=== PATIENT | female | born 1950 | race Asian ===

== ENCOUNTER → 2020-05-24 | Outpatient (CLI) | payer MEDICARE, OTHER ==
[2016-04-22 21:25] VITALS: BP 142/62
[~2020-05-24] MED LIST: NORMAL SALINE IV ONE; SINCALIDE IV ONE
--- NOTE | 2020-05-24 09:38 | RAD ---
EXAMINATION: RIGHT UPPER QUADRANT ULTRASOUND CLINICAL HISTORY: Epigastric pain, nausea TECHNIQUE: Sonography of the right upper quadrant was performed. COMPARISON: None FINDINGS: Pancreas: Normal sonographic appearance. - Portions obscured: Tail Liver: - Echotexture: Slightly coarsened. - Echogenicity: Increased, compatible with steatosis. - Surface contour: Smooth - Lesions: None. Biliary: No intrahepatic biliary duct dilation. - CBD: 3 mm. - Gallbladder: Normal caliber. - Contents: No cholelithiasis. - Wall: No abnormal thickening. - Other: No pericholecystic fluid. Right Kidney: Measures 11.2 cm in length. No hydronephrosis or focal lesion. Ascites: None. Aorta/IVC: Partially visualized aorta and IVC unremarkable. IMPRESSION: Findings compatible with hepatic steatosis. Electronically signed by: Earnest Nick DO (05/24/2020 9:36 AM) [id number]
--- NOTE | 2020-05-24 19:15 | RAD ---
INDICATION: Abdomen pain. COMPARISON: Ultrasound from same day TECHNIQUE: 5.5mCi of Tc99m Choletec was injected intravenously followed by scintigraphic images of the abdomen. One mcg of CCK was then injected and a gallbladder ejection fraction was calculated. FINDINGS: Appropriate radiotracer clearance from the blood pool. Appropriate radiotracer excretion into the biliary tree. Prompt passage of contrast into the small bowel. Visualization of the gallbladder prior to the 60 minute time point. Gallbladder ejection fraction is 63 percent. IMPRESSION: 1. No scintigraphic evidence of acute cholecystitis or high grade biliary obstruction. 2. No evidence of biliary dyskinesia. Electronically signed by: Shivam Gilbert MD (05/24/2020 7:13 PM) [id number]
== END ==
LOC: US 08:26
PROVIDERS: ATTEND Internal Medicine Gastroenterology
DX: R11.0 Nausea (principal); R10.13 Epigastric pain
CPT/HCPCS: 76705; 78227; A9537; J2805